=== PATIENT | female | born 1990 | race Two or more races ===

== ENCOUNTER 2019-09-12 17:15 | Observation (INO) | payer OTHER ==
[~2019-09-12] VITALS: Ht 162.6 cm; Wt 99.3 kg
[2019-09-12 18:56] LABS: Basophils # (auto) 0 uL; Basophils % (auto) 0.3 % (0.0-2.0); Eosinophils # (auto) 0 uL; Hematocrit 37.4 % (36.0-46.0); Hemoglobin 12.9 g/dL (12.2-16.2); Lymphocytes # (auto) 1.2 uL; Lymphocytes % (auto) 10.2 % (10.0-50.0); Mean Corpuscular Hemoglobin 29.7 pg (28.0-32.0); Mean Corpuscular Hgb Conc. 34.5 g/dL (32.0-36.0); Mean Corpuscular Volume 86.1 fL (80.0-100.0); Monocytes # (auto) 0.2 uL; Monocytes % (auto) 2.1 % (0.0-12.0); Neutrophils # (auto) 10.1 uL; Neutrophils % (auto) 87.4 % (37.0-80.0); Platelet Count (auto) 265 10^3/uL (140-450); Red Blood Cells 4.34 10^6/uL (4.0-5.20); Red Cell Distribution Width 13.6 % (11.8-14.3); White Blood Cell 11.5 10^3/uL (4.4-10.8)
[2019-09-12 19:11] LABS: Urine Bacteria NONE SEEN /hpf (None Seen); Urine Blood 2+ /uL (Negative); Urine Hyaline Cast FEW /lpf (0 - 2); Urine Mucus MODERATE (None Seen); Urine Specific Gravity 1.029 (1.001-1.035); Urine WBC 3 /hpf (0 - 5)
[2019-09-12 19:15] LABS: Albumin 3.3 g/dL (3.4-5.0); BUN/Creatinine Ratio 7.8; Bilirubin, Total 0.4 mg/dL (0.2-1.0); Calcium 8.7 mg/dL (8.5-10.1); Total Protein 7.8 g/dL (6.4-8.2)
[2019-09-12 19:26] LABS: Potassium 2.9 mmol/L (3.5-5.1)
[2019-09-12] MEDS ORDERED: POTASSIUM CHL 20 Meq TABLET PO ONE (19:30)
[2019-09-12] MEDS ORDERED: ONDANSETRON HCL 4 MG/2 ML VIAL IV ONE (19:30)
[2019-09-12] MEDS ORDERED: SODIUM CHLORIDE 0.9% 1,000 ML IVB ONE (20:13)
[2019-09-12 23:15] LABS: Alcohol, Urine < 3.0 mg/dL (0-5); Amphetamine Screen, Urine NEGATIVE (NEGATIVE); Barbiturate Scree,Urine NEGATIVE (NEGATIVE); Benzodiazephine Screen, Urine NEGATIVE (NEGATIVE); Cannabinoid Screen, Urine POSITIVE (NEGATIVE); Cocaine Screen, Urine NEGATIVE (NEGATIVE); Opiate Scree,Urine NEGATIVE (NEGATIVE); Phencyclidine Screen, Urine NEGATIVE (NEGATIVE)
[2019-09-12] MEDS ORDERED: FAMOTIDINE 20 MG TAB PO ONE (23:15)
[2019-09-12] MEDS ORDERED: LACTATED RINGER'S 1,000 ML IV ONE (23:30)
--- NOTE | 2019-09-13 00:26 | NUR ---
Discharge instructions completed.
== END 2019-09-13 00:32 | disposition home or self-care (01) | DRG 566 ==
LOC: ER 17:20 → LDRP 22:17
PROVIDERS: ADMIT Obstetrics & Gynecology; ATTEND Obstetrics & Gynecology
DX: O21.0 Mild hyperemesis gravidarum (principal); E87.6 Hypokalemia; Z3A.25 25 weeks gestation of pregnancy; Z98.891 History of uterine scar from previous surgery
CPT/HCPCS: 36415; 59025; 76805; 80053; 80307; 81001; 81002; 81025; 82962; 85025; 96361; 96374; 99284; G0378; J2405; J7030